=== PATIENT | female | born 1955 | race Caucasian/White ===

== ENCOUNTER 2022-08-22 05:31 | Observation (INO) ==
[2022-08-22] MEDS ORDERED: CLINDAMYCIN INJ 900 MG/50 ML PREMIX IV ONE (06:00)
[2022-08-22] MEDS ORDERED: VANCOMYCIN INJ 1,000 MG in SODIUM CHLORIDE 0.9% 250 ML IV ONE (06:00)
[2022-08-22] MEDS: LACTATED RINGERS 1,000 ML IV SCH ×2 (06:15→08:00)
[2022-08-22] MEDS ORDERED: propofoL 200 MG/20 ML VIAL IV ONE (06:24)
[2022-08-22] MEDS ORDERED: MIDAZOLAM 2 MG/2 ML VIAL ONE (06:24)
[2022-08-22] MEDS ORDERED: DEXAMETHASONE 4 MG/1 ML VIAL ONE ×2 (06:24→06:38)
[2022-08-22] MEDS ORDERED: ROCURONIUM 50 MG/5 ML VIAL IV ONE (06:24)
[2022-08-22] MEDS ORDERED: LIDOCAINE 2% 5 ML VIAL ONE (06:24)
[2022-08-22] MEDS ORDERED: SUCCINYLCHOLINE 200 MG/10 ML VIAL ONE (06:24)
[2022-08-22] MEDS ORDERED: ONDANSETRON 4 MG/2 ML VIAL ONE (06:24)
[2022-08-22] MEDS ORDERED: SCOPOLAMINE 1.5 MG PATCH TRANSDERM ONE ×2 (06:34→06:35)
[2022-08-22] MEDS ORDERED: FAMOTIDINE 20 MG TABLET PO STA (06:34)
[2022-08-22] MEDS ORDERED: FAMOTIDINE 20 MG TABLET ONE (06:35)
[2022-08-22] MEDS ORDERED: ROPIVACAINE 0.5% 30 ML VIAL ONE (06:38)
[2022-08-22] MEDS ORDERED: LIDOCAINE 1% 5 ML VIAL ONE (06:38)
[2022-08-22] MEDS ORDERED: SEVOFLURANE 1 UNIT/15 MINUTE INH ONE (07:46)
[2022-08-22] MEDS ORDERED: PHENYLEPHRINE 1 MG/10 ML SYRINGE IV ONE (07:46)
[2022-08-22] MEDS ORDERED: LACTATED RINGERS 1,000 ML IV ONE (08:13)
[2022-08-22] MEDS ORDERED: NEOMYCIN/POLYMYXIN/BACITRACIN OINT 28.4 GM TUBE TOP ONE (08:17)
[2022-08-22] MEDS ORDERED: GLYCOPYRROLATE 0.4 MG/2 ML VIAL ONE (08:37)
[2022-08-22] MEDS ORDERED: NEOSTIGMINE 10 MG/10 ML VIAL ONE (08:37)
[2022-08-22] MEDS ORDERED: TRANEXAMIC ACID 1,000 MG/10 ML VIAL ONE (08:40)
[2022-08-22] MEDS ORDERED: ONDANSETRON 4 MG/2 ML VIAL IV PRN (09:05)
[2022-08-22] MEDS ORDERED: MAGNESIUM HYDROXIDE SUSP 30 ML UDCUP PO PRN (09:05)
[2022-08-22] MEDS ORDERED: diphenhydrAMINE CAP 25 MG CAPSULE PO PRN (09:05)
[2022-08-22] MEDS ORDERED: KETOROLAC 30 MG/1 ML VIAL IV PRN (09:05)
[2022-08-22] MEDS ORDERED: HYDROmorphone 1 MG/1 ML SYRINGE IV PRN ×2 (09:05)
[2022-08-22] MEDS ORDERED: CHLORPHENIRAMINE PHENYLEPHRINE PO PRN (09:07)
[2022-08-22] MEDS ORDERED: NON-FORMULARY MEDICATION (Inulin [Fiber Gummies] 2 gram Tablet,Chewable) PO SCH (09:15)
[2022-08-22] MEDS ORDERED: LACTATED RINGERS 1,000 ML IV SCH (09:30)
[2022-08-22] MEDS: CLINDAMYCIN INJ 900 MG/50 ML PREMIX IV SCH ×2 (16:30→23:02)
[2022-08-22] MEDS ORDERED: VANCOMYCIN INJ 1,000 MG in SODIUM CHLORIDE 0.9% 250 ML IV SCH (17:00)
[2022-08-22] MEDS: metFORMIN 500 MG TABLET PO SCH (18:08)
[2022-08-22] MEDS: INSULIN LISPRO 100 UNIT/ML SUBCUT SCH ×2 (18:50→20:46)
[2022-08-22] MEDS ORDERED: PHENOL 1.4% THROAT SPRAY 177 ML BOTTLE PO PRN (20:06)
[2022-08-22] MEDS ORDERED: COENZYME Q10 100 MG CAPSULE PO SCH (21:00)
[2022-08-22] MEDS ORDERED: DILTIAZEM CD 180 MG CAPSULE PO SCH (21:00)
[2022-08-22] MEDS ORDERED: MONTELUKAST 10 MG TABLET PO SCH (21:00)
[2022-08-22] MEDS: VENLAFAXINE XR 75 MG CAPSULE PO SCH (21:07)
[2022-08-22] MEDS: busPIRone 15 MG TABLET PO SCH (21:07)
[2022-08-23 04:53] LABS: Basophils % 0.2 % (0.0-0.8); Hematocrit 32.2 VOL% (35.7-47.0); Hemoglobin 10.3 GM/DL (12.0-16.0); Immature Granulocytes % 0.6 %; Immature Granulocytes Absolute 0.11 #; Lymphocytes # 1.6 10*3/uL (1.4-4.0); Lymphocytes % 9.2 % (21.3-54.2); Mean Corpuscular Volume 95.5 FL (87-102); Mean Platelet Volume 9.6 FL (9.6-12.0); Monocytes # 1.3 10*3/uL (0.11-0.8); Monocytes % 7.4 % (1.7-12.7); Neutrophils % 82.6 % (38.7-73.9); Platelet Count 374 T/CUMM (130-400); Red Blood Count 3.37 MC/CUMM (3.8-5.5); Red Cell Distribution Width 13.4 % (9.3-17.3); White Blood Count 17.3 T/CUMM (4-12)
[2022-08-23 05:21] LABS: Calcium 9.3 MG/DL (8.5-10.1); Potassium 3.5 MMOL/L (3.5-5.1)
[2022-08-23 07:39] VITALS: BP 116/66
[2022-08-23] MEDS: metFORMIN 500 MG TABLET PO SCH (08:26)
[2022-08-23] MEDS: busPIRone 15 MG TABLET PO SCH (08:26)
[2022-08-23] MEDS: VENLAFAXINE XR 75 MG CAPSULE PO SCH (08:26)
[2022-08-23] MEDS ORDERED: FLUTICASONE 50 MCG NASAL SPRAY 16 GM BOTTLE BOTH NARES SCH (09:00)
[2022-08-23] MEDS ORDERED: PANTOPRAZOLE 40 MG TABLET PO SCH (09:00)
[2022-08-23] MEDS ORDERED: ASPIRIN EC 81 MG TABLET PO SCH (09:00)
[2022-08-23] MEDS ORDERED: OMEGA 3 ACID ETHYL ESTERS 1 GM CAPSULE PO SCH (09:00)
[2022-08-23] MEDS ORDERED: hydroCHLOROthiazide 12.5 MG CAPSULE PO SCH (09:00)
[2022-08-23] MEDS: INSULIN LISPRO 100 UNIT/ML SUBCUT SCH ×2 (09:05→10:54)
[2022-08-23] MEDS ORDERED: LOSARTAN 50 MG TABLET PO SCH (21:00)
== END 2022-08-23 11:26 | disposition home or self-care (01) ==
LOC: INTOOBSV 05:31 → N.SDSINP 05:31 → N.3E 13:47
PROVIDERS: ADMIT Orthopaedic Surgery; ATTEND Orthopaedic Surgery